=== PATIENT | female | born 1935 | race Caucasian/White ===

== ENCOUNTER 2017-05-24 10:47 | Inpatient (IN) | payer OTHER, MEDICARE ==
[2017-05-24 11:56] LABS: % IMMATURE GRANULYOCYTES 0.2 % (0.0-1.1); ABSOLUTE IMMATURE GRANULOCYTES 0.01 10^3/uL (0.00-0.10); ADD DIFF? NO; ADD MORPH? NO; ADD SCAN? NO; ATYPICAL LYMPHOCYTE FLAG 20 (0-99); FRAGMENT RBC FLAG 20 (0-99); HEMATOCRIT 35.7 % (38.0-47.0); LEFT SHIFT FLG 0 (0-99); LIPEMIA HEMOLYSIS FLAG 80 (0-99); MEAN CELL HEMOGLOBIN 28.6 pg (27.9-34.1); MEAN CELL HEMOGLOBIN CONCENTR. 30.8 g/dL (32.4-36.7); PLATELET CLUMPS FLAG 0 (0-99); PLATELET COUNT 287 10^3/uL (150-400); RED BLOOD CELL COUNT 3.84 10^6/uL (4.18-5.33); RED CELL DISTRIBUTION WIDTH 17.7 % (11.5-15.2)
[2017-05-24 12:13] LABS: ANION GAP 14 mEq/L (8-16); CALCIUM 9.1 mg/dL (8.5-10.4); CARBON DIOXIDE 22 mEq/l (22-31); CHLORIDE 108 mEq/L (97-110); CREATININE 0.7 mg/dL (0.6-1.0); GLOMERULAR FILTRATION RATE > 60; GLUCOSE 108 mg/dL (70-100); POTASSIUM 3.9 mEq/L (3.5-5.2); SODIUM 144 mEq/L (134-144)
[2017-05-24 12:15] LABS: SEDIMENTATION RATE 40 MM/HR (0-30)
[2017-05-24] MEDS ORDERED: VANCOMYCIN HCL/NORMAL SALINE 250 ML IV ONE (13:36)
--- NOTE | 2017-05-24 13:44 | EDPHY ---
H & P Stated Complaint: septic L knee staph infection many yrs ago Time Seen by Provider: 05/24/17 10:59 HPI/ROS: CHIEF COMPLAINT: left knee infection HISTORY OF PRESENT ILLNESS: 82-year-old female presents emergency department with her daughter who is concerned about an infection of her left knee. Patient had a staph infection of this left knee 17 years ago. She had her hardware removed, spacers placed and was on antibiotics. Patient was followed by infectious disease and was placed on daily suppressive doxycycline. Patient' s primary care doctor took her off of this 2 years ago. Daughter reports intermittently over the last year she has had redness that comes and goes in this knee, 1 week ago she started developing increasing redness, in the last 12 hours she has had increased redness with streaking, increased swelling and drainage. No fevers or chills, no fatigue, normal appetite, mild increase in pain. Patient ambulates with a walker. REVIEW OF SYSTEMS: A comprehensive 10 point review of systems is otherwise negative aside from elements mentioned in the history of present illness. Source: Patient, Family Exam Limitations: Other (Alzheimer's) - Personal History Current Tetanus/Diphtheria Vaccine: Unsure Current Tetanus Diphtheria and Acellular Pertussis (TDAP): Unsure - Medical/Surgical History Hx Asthma: No Hx Chronic Respiratory Disease: No Hx Diabetes: No Hx Cardiac Disease: Yes Hx Renal Disease: No Hx Cirrhosis: No Hx Alcoholism: No Hx HIV/AIDS: No Hx Splenectomy or Spleen Trauma: No Other PMH: Alzheimer, Pacer, CHF, CAD, Shogren's, Osteoarthritis, Heart Murmur, cardiomyopathy, hypertension, bilateral knee replacement, ankle replacement - Social History Smoking Status: Never smoked Alcohol Use: None Drug Use: None - Physical Exam Exam: Physical Exam Gen: Alert and Oriented, NAD HEENT: PERRL, moist mucous membranes NECK: no meningismus CV: regular rate and regular rhythm, systolic murmur PULM: CTAB, no wheezes ABDOMEN: Obese, soft, non tender to palpation, BS present BACK: No CVA tenderness NEURO: Neurologically grossly intact EXTREMITIES: Left knee with swelling, erythema, 1 cm x 1 cm abscess to lateral knee with fluctuance. Full extension, flexion to 80 degrees, warm to the touch , 2+ pedal pulses, sensation intact to light touch SKIN: See above PSYCH: answers questions appropriately. Constitutional: Initial Vital Signs Temperature (C) 36.6 C 05/24/17 10:49 Heart Rate 86 05/24/17 10:49 Respiratory Rate 16 05/24/17 10:49 Blood Pressure 152/92 H 05/24/17 10:49 O2 Sat (%) 94 05/24/17 10:49 O2 Delivery Mode Room Air Allergies/Adverse Reactions: Penicillins Allergy (Mild, Verified 04/30/12 22:03) Hives morphine Allergy (Verified 05/24/17 10:52) Home Medications: Medication Instructions Recorded Aspirin [Aspirin 81mg (*)] 81 mg PO DAILY 04/20/15 Calcium Carbonate [Oyster Shell 500 mg PO DAILY 04/20/15 Calcium 500 mg (*)] Cholecalciferol Vit D3 [Vitamin D3 1,000 units PO DAILY 04/20/15 (*)] DULoxetine [Cymbalta 30 MG (*)] 90 mg PO DAILY 04/20/15 Donepezil HCl [Aricept] 10 mg PO HS 04/20/15 Doxycycline Hyclate [Vibramycin 100 mg PO DAILY 04/20/15 100 MG (*)] Ferrous Sulfate [Ferrous Sulf 325 325 mg PO DAILY 04/20/15 MG (*)] Furosemide [Lasix 20 MG (*)] 20 mg PO DAILY 04/20/15 Herbals/Supplements -Info Only 1 ea PO DAILY 04/20/15 Magnesium Oxide [Magnesium Oxide 500 mg PO DAILY@18 04/20/15 500 mg] Pantoprazole Sodium [Protonix 40mg 40 mg PO DAILY 04/20/15 (*)] Potassium Chloride [Klor-Con 8] 8 meq PO DAILY 04/20/15 Simvastatin [Zocor] 20 mg PO 1800 04/20/15 Acetaminophen [Tylenol] 500 mg PO Q6 PRN 11/24/15 Benzocaine [Orajel] 1 gregory MM DAILY PRN 11/24/15 Docusate Sodium [Colace] 100 mg PO TID 11/24/15 Nystatin Powder [Mycostatin Powder 1 gregory TP BID 11/24/15 (RX)] Polyethylene Glycol 3350 [Miralax] 17 gm PO DAILY PRN 11/24/15 Sennosides [Senna] 8.6 mg PO BID 11/24/15 oxyCODONE IR [Oxycodone Ir (RX)] 10 mg PO TID 11/24/15 Medical Decision Making - Diagnostics Imaging: I viewed and interpreted images myself ED Course/Re-evaluation: IV established, CBC, chemistry panel, CRP, sed rate, blood cultures obtained. Left knee x-ray obtained. Lateral left knee abscess was drained, culture sent to the lab. Arthrocentesis attempted though unsuccessful. Patient is afebrile , nontoxic-appearing. Normal white blood cell count, CRP is elevated at 33, sed rate elevated at 40. Daughter reports doctor Nelson is the patient's orthopedist, we have left a message for him and paged Dr. Gregg who is on-call for their office. 130pm-I spoke with Dr. Damon, plan is to admit the patient to the hospitalist, I discussed with him that I was unable to obtain joint fluid though sent the lateral knee abscess for a culture. Patient has been started on vancomycin and will be admitted to the hospitalist with Ortho consult. Differential Diagnosis: Diagnosis considered but not limited to cellulitis, septic joint, fracture. - Data Points Laboratory Results: Laboratory Results 05/24/17 11:51 05/24/17 11:51 05/24/17 05/24/17 11:51 11:51 WBC 4.22 10^3/uL 10^3/uL (3.80-9.50) RBC 3.84 10^6/uL L 10^6/uL (4.18-5.33) Hgb 11.0 g/dL L g/dL (12.6-16.3) Hct 35.7 % L % (38.0-47.0) MCV 93.0 fL fL (81.5-99.8) MCH 28.6 pg pg (27.9-34.1) MCHC 30.8 g/dL L g/dL (32.4-36.7) RDW 17.7 % H % (11.5-15.2) Plt Count 287 10^3/uL 10^3/uL (150-400) MPV 10.0 fL fL (8.7-11.7) Neut % (Auto) 65.4 % % (39.3-74.2) Lymph % (Auto) 19.2 % % (15.0-45.0) [place] % (Auto) 10.4 % % (4.5-13.0) Eos % (Auto) 4.3 % % (0.6-7.6) Baso % (Auto) 0.5 % % (0.3-1.7) Nucleat RBC Rel Count 0.0 % % (0.0-0.2) Absolute Neuts (auto) 2.76 10^3/uL 10^3/uL (1.70-6.50) Absolute Lymphs (auto) 0.81 10^3/uL L 10^3/uL (1.00-3.00) Absolute Monos (auto) 0.44 10^3/uL 10^3/uL (0.30-0.80) Absolute Eos (auto) 0.18 10^3/uL 10^3/uL (0.03-0.40) Absolute Basos (auto) 0.02 10^3/uL 10^3/uL (0.02-0.10) Absolute Nucleated RBC 0.00 10^3/uL 10^3/uL (0-0.01) Immature Gran % 0.2 % % (0.0-1.1) Immature Gran # 0.01 10^3/uL 10^3/uL (0.00-0.10) ESR 40 MM/HR H MM/HR (0-30) Sodium 144 mEq/L mEq/L (134-144) Potassium 3.9 mEq/L mEq/L (3.5-5.2) Chloride 108 mEq/L mEq/L (97-110) Carbon Dioxide 22 mEq/l mEq/l (22-31) Anion Gap 14 mEq/L mEq/L (8-16) BUN 18 mg/dL mg/dL (7-23) Creatinine 0.7 mg/dL mg/dL (0.6-1.0) Estimated GFR > 60 Glucose 108 mg/dL H mg/dL (70-100) Calcium 9.1 mg/dL mg/dL (8.5-10.4) C-Reactive Protein 33.0 mg/L H mg/L (<10.0) Departure - Departure Disposition: [facility] Inpatient Acute Clinical Impression: Infection of left knee Condition: Good Referrals: Dion Elmore MD [Primary Care Provider] - As per Instructions
[2017-05-24] MEDS ORDERED: ONDANSETRON DISINTEGRATING 4 MG TAB PO PRN (15:14)
[2017-05-24] MEDS ORDERED: ACETAMINOPHEN 325 MG TAB PO PRN (15:14)
[2017-05-24] MEDS ORDERED: ONDANSETRON 4 MG/2 ML VIAL IVP PRN (15:14)
[2017-05-24] MEDS ORDERED: POLYETHYLENE GLYCOL 3350 17 GM PKT PO PRN (15:18)
[2017-05-24] MEDS ORDERED: BENZOCAINE (ORAJEL) GEL 11.9GM TUBE MM PRN (15:18)
[2017-05-24] MEDS ORDERED: NYSTATIN POWDER 15 GM BTL TP PRN (15:18)
--- NOTE | 2017-05-24 15:54 | GHP ---
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 She presents today with increased swelling of her left knee. It sounds like in the 2 years since her suppressive doxycycline has been stopped, isabel key has an intermittent swelling and warmth. She has seen multiple doctors. She has had attempted ar throcenteses that have been unsuccessful. She really has had on-and-off swelling and erythema. She has had no recent fever and chills. On the lateral aspect of her knee, she had what sounds like a pustule spontaneously drain about what sounds like a tablespoon of pus last week. There has been some warmth of the knee which is on waxing and waning but not new. There has been no acute loss of range of motion of her knee, and she is able to flex at about 90 degrees for me now without pain. In the emergency department, an attempted arthrocentesis, as I am told, yielded no fluid, but they w ere able to drain some fluid off a pustule on the lateral edge of the knee, which had purulent mater ial in a bandage. When I examined it, there was still some residual purulence in the pustule. Nota uche, this pustule is 8 in the lateral incision line. She denies pain in her groin, confusion, and fever/chills. REVIEW OF SYSTEMS: Complete 10-point review of systems conducted. Negative except as noted in the HPI. PAST MEDICAL HISTORY: Dementia, nonischemic cardiopathy (but last EF of 78%), history of pacemaker, history of complete heart block, history of Sjogren syndrome. She has had bilateral total hip repl acement and complicated knee replacement, as I have talked about. She had a right knee replacement, as well. Repair of left femoral fracture and left wrist surgery. She lives with her daughter and the family caregiver. No alcohol or tobacco. FAMILY HISTORY: Both parents had heart disease. ALLERGIES: Penicillins and morphine. HOME MEDICATIONS: Alendronate, aspirin, acetaminophen, benzocaine, cetirizine, vitamin D3, docusate , Donepezil, duloxetine, furosemide, irbesartan, mag oxide, methotrexate, nifedipine, nystatin, pant oprazole, polyethylene glycol, potassium chloride, senna, and simvastatin. PHYSICAL EXAMINATION: VITAL SIGNS: Temp 36.7, blood pressure 104/64, pulse 72, breathing 16 times a minute, 98% on room air. GENERAL: No acute distress. HEENT: Sclerae anicteric. Oropharynx humphrey ar. Mucous membranes moist. NECK: Supple without lymphadenopathy or JVD. LUNGS: Clear to auscul tation bilaterally. HEART: S1, S2 without murmurs. ABDOMEN: Soft, nontender, nondistended. EXTR EMITIES: Left lower extremity shows a visibly deformed knee secondary to her knee surgery 15 years ago. There is slight warmth and erythema. There is no lymphangitic streaking. There is no inguina l lymphadenopathy. There is a pustule on the lateral edge that has drained a bit of pus as I descri bed in the HPI. There is a little bit of inferior edema. The right leg shows evidence of prior kne e arthroplasty but is otherwise unremarkable. LABORATORY DATA: White count 4.2, hematocrit 36, platelets 287,000; MCV is normal. There is no INR . Sodium 141, potassium 3.9, chloride 108, bicarb 22, BUN 18, creatinine 0.7, glucose 108. CRP sli ghtly elevated at 33, and her sedimentation rate is elevated at 40. There is a knee film interprete d by me, which shows evidence of prior knee arthroplasty with probable joint effusion. I have discu ssed the case with Linda Qureshi NP, of the emergency department. ASSESSMENT/PLAN: An 82-year-old female with complex knee history, presents with concern for septic arthritis. 1. Septic arthritis: I think she has a likely soft tissue infection around her knee. Whether or n ot she has an indolent knee infection in her hardware is less clear. She does not have a hallmarks of decreased range of motion, fever, or leukocytosis; however, that there is a complexity to this st ory. It sounds like they were really unable to get fluid to send for sample. Orthopedics will see her. I have started her on vancomycin. 2. Code status: [id number]. 3. Dementia: Continue her donepezil. 4. Hypertension: Continue her nifedipine and irbesartan. 5. Prophylaxis: Pharmacologic prophylaxis indicated. For now, I will just give her SCDs in case t here is a plan for a washout or other invasive procedures. DISPOSITION: Inpatient status. /[id number]/MODL
[2017-05-24] MEDS ORDERED: SENNOSIDES 1 TAB PO PRN (16:00)
[2017-05-24] MEDS: ACETAMINOPHEN 500 MG TAB PO SCH ×2 (17:59→21:41)
[2017-05-24] MEDS: ATORVASTATIN CALCIUM 10 MG TAB PO SCH (17:59)
[2017-05-24] MEDS: DOCUSATE SODIUM 100 MG CAP PO SCH (20:20)
[2017-05-24] MEDS: FUROSEMIDE 20 MG TAB PO SCH (20:20)
[2017-05-24] MEDS: DONEPEZIL HCL 5 MG TAB PO SCH (20:20)
[2017-05-24] MEDS: MAGNESIUM OXIDE 400 MG TAB PO SCH (20:20)
[2017-05-24] MEDS: POTASSIUM CHLORIDE 8 MEQ PO SCH (20:21)
[2017-05-25] MEDS ORDERED: VANCOMYCIN HCL/NORMAL SALINE 250 ML IV SCH (02:30)
[2017-05-25 05:08] LABS: % IMMATURE GRANULYOCYTES 0.3 % (0.0-1.1); ABSOLUTE IMMATURE GRANULOCYTES 0.01 10^3/uL (0.00-0.10); ADD DIFF? NO; ADD MORPH? NO; ADD SCAN? NO; ATYPICAL LYMPHOCYTE FLAG 0 (0-99); FRAGMENT RBC FLAG 20 (0-99); HEMATOCRIT 33.5 % (38.0-47.0); HEMOGLOBIN 10.5 g/dL (12.6-16.3); LEFT SHIFT FLG 0 (0-99); LIPEMIA HEMOLYSIS FLAG 80 (0-99); MEAN CELL HEMOGLOBIN 28.8 pg (27.9-34.1); MEAN CELL HEMOGLOBIN CONCENTR. 31.3 g/dL (32.4-36.7); MEAN CELL VOLUME 91.8 fL (81.5-99.8); MEAN PLATELET VOLUME 10.1 fL (8.7-11.7); PLATELET CLUMPS FLAG 0 (0-99); PLATELET COUNT 274 10^3/uL (150-400); RED BLOOD CELL COUNT 3.65 10^6/uL (4.18-5.33); RED CELL DISTRIBUTION WIDTH 17.7 % (11.5-15.2)
[2017-05-25] MEDS ORDERED: Herbals/Supplements -Info Only PO SCH (09:00)
[2017-05-25] MEDS: DULoxetine 30 MG CAP PO SCH (09:40)
[2017-05-25] MEDS: NIFEdipine ER 30 MG TAB PO SCH (09:41)
[2017-05-25] MEDS: MAGNESIUM OXIDE 400 MG TAB PO SCH ×2 (09:43→20:24)
[2017-05-25] MEDS: ACETAMINOPHEN 500 MG TAB PO SCH ×3 (09:43→22:10)
[2017-05-25] MEDS: IRBESARTAN 75 MG TAB PO SCH (09:43)
[2017-05-25] MEDS: PANTOPRAZOLE SODIUM 40 MG TAB PO SCH (09:43)
[2017-05-25] MEDS: CETIRIZINE 10 MG TAB PO SCH (09:43)
[2017-05-25] MEDS: FUROSEMIDE 20 MG TAB PO SCH (09:43)
[2017-05-25] MEDS: DOCUSATE SODIUM 100 MG CAP PO SCH ×2 (09:43→20:24)
[2017-05-25] MEDS: CHOLECALCIFEROL VIT D3 2,000 UNITS TAB/CAP PO SCH (09:43)
--- NOTE | 2017-05-25 12:41 | GCON ---
[f rep st] CONSULTATION DATE OF CONSULTATION: 05/24/2017 CURRENT COMPLAINTS: Left knee pain and warmth. HISTORY OF PRESENT ILLNESS: This is an 82-year-old female with a complicated history with her left knee. She has had multiple surgeries and revision knee replacement done to it. She cannot remember when her last revision was or who did the actual surgery itself. She does note that she had an inf ection, but she is unsure what the actual bacteria was. Report from the emergency room had incorrec tly stated that Dr. Jesus Damon had done her surgery and suggested that she had a staph infection kye ated with doxycycline and was on chronic suppression; however, that had been stopped approximately 2 years ago, according to the report. She apparently has developed a small draining wound at the lat eral portion of her knee. She was seen in the emergency room, where that small bump was debrided. Apparently fluid was collected and sent to the lab for further evaluation. She was placed on vancom ycin in order to prevent any spread of any infection she may have. PHYSICAL EXAMINATION: The patient does have warmth and some redness to the skin of the knee. She h as no significant effusion noted to the actual knee joint itself. She has no pain to log roll throu gh the knee or to flexion or extension through the knee, with no pain noted at all. Most of her inci sions appear to have matured well except for one of the lateral ones were she has an approximately 1 .5 cm wound that appears to have been sharply debrided. The wound was thoroughly examined and no pu rulent fluid was able to be expressed from the wound. No serous fluid or joint fluid was able to be expressed from the wound. It was, therefore, redressed. LABORATORY RESULTS: Reveal that she has a white count of 4.22, which is normal. Her sedimentation rate, however, is elevated at 40 and her C-reactive protein is elevated at 33. She has remained afe brile while she is here in the hospital. Gram stain shows no organisms and cultures are pending. ASSESSMENT AND PLAN: Patient is status post left knee cellulitis versus septic joint. Long discuss ion was had with the patient regarding further treatment. I have suggested we continue with antibio tics, wait to see if her labs start to correct with the simple antibiotics she is currently on and s ee if the cellulitis or a knee infection starts to declare itself. I am unsure how much she underst ood the conversation, but she would prefer to be as conservative as possible. Her daughter, who gregory ears to have medical power of civil litigation attorney, was called. I was unable to well drill operator her and, therefore, lef t a message giving her a recount of the plan for treatment. I will continue to follow her while she is here in the hospital. /[id number]/MODL
[2017-05-25] MEDS ORDERED: NS 1,000 ML IV SCH (14:00)
--- NOTE | 2017-05-25 14:05 | HOSPPROG ---
Hospitalist Progress Note Assessment/Plan: 82 yo F w alzheimer's, remotely infected TKA s/p explant/spacer/implant here w erythematous knee ?septic arthritis: unclear. no fluid on attempted aspiration in ER inflammatory markers mildly elevated seen by ortho, expectant management pustule: on abx resolved systolic murmur: sounds like maintain euvolemia proph: lmwh sidpo: inpt Subjective: afebrile Objective: Vital Signs Temp Pulse Resp BP Pulse Ox 36.4 C 74 16 134/75 H 90 L 05/25/17 11:46 05/25/17 11:46 05/25/17 11:46 05/25/17 11:46 05/25/17 11:46 Laboratory Results 05/25/17 04:15 05/24/17 05/25/17 05/26/17 05:59 05:59 05:59 Intake Total 850 Balance 850 - Physical Exam Constitutional: no apparent distress, appears nourished Eyes: PERRL, anicteric sclera Ears, Nose, Mouth, Throat: moist mucous membranes, hearing normal Cardiovascular: regular rate and rhythym, no murmur, rub, or gallop, systolic murmur Respiratory: no respiratory distress, no rales or rhonchi Gastrointestinal: normoactive bowel sounds, soft, non-tender abdomen Genitourinary: no bladder fullness, No lilly in urethra Skin: warm, normal color Musculoskeletal: full muscle strength, other (knee less warm, less erythema) Neurologic: AAOx3, sensation intact bilaterally ICD10 Worksheet Patient Problems: Problems Problem Status Onset Infection of left knee Acute S/P closed reduction of dislocated total hip prothesis Acute
--- NOTE | 2017-05-25 14:35 | SOAPPROG ---
SOAP Progress Note Assessment/Plan: Assessment: Plan: Subjective: states she's comfortable neg pain with PROM and min warmth no drainage of wound at this time lower WBC cont Abx would continue chronic antibiotic suppression Call back if condition deteriorates Objective: Vital Signs Temp Pulse Resp BP Pulse Ox 36.4 C 74 16 134/75 H 90 L 05/25/17 11:46 05/25/17 11:46 05/25/17 11:46 05/25/17 11:46 05/25/17 11:46 Laboratory Results 05/25/17 04:15 05/24/17 05/25/17 05/26/17 05:59 05:59 05:59 Intake Total 850 Balance 850 ICD10 Worksheet Patient Problems: Problems Problem Status Onset Infection of left knee Acute S/P closed reduction of dislocated total hip prothesis Acute
[2017-05-25] MEDS: ATORVASTATIN CALCIUM 10 MG TAB PO SCH (17:04)
[2017-05-25] MEDS: DONEPEZIL HCL 5 MG TAB PO SCH (20:24)
[2017-05-25] MEDS: POTASSIUM CHLORIDE 8 MEQ PO SCH (20:25)
[2017-05-26] MEDS: VANCOMYCIN HCL/NORMAL SALINE 250 ML IV SCH (02:55)
[2017-05-26] MEDS: ACETAMINOPHEN 500 MG TAB PO SCH ×3 (09:25→20:05)
[2017-05-26] MEDS: DULoxetine 30 MG CAP PO SCH (09:25)
[2017-05-26] MEDS: CETIRIZINE 10 MG TAB PO SCH (09:25)
[2017-05-26] MEDS: MAGNESIUM OXIDE 400 MG TAB PO SCH ×2 (09:26→20:03)
[2017-05-26] MEDS: PANTOPRAZOLE SODIUM 40 MG TAB PO SCH (09:27)
[2017-05-26] MEDS: DOCUSATE SODIUM 100 MG CAP PO SCH ×2 (09:27→20:03)
[2017-05-26] MEDS: NIFEdipine ER 30 MG TAB PO SCH (09:27)
[2017-05-26] MEDS: CHOLECALCIFEROL VIT D3 2,000 UNITS TAB/CAP PO SCH (09:27)
[2017-05-26] MEDS: IRBESARTAN 75 MG TAB PO SCH (09:28)
[2017-05-26] MEDS ORDERED: METHOTREXATE 2.5 MG TAB PO SCH (12:00)
--- NOTE | 2017-05-26 13:58 | HOSPPROG ---
Hospitalist Progress Note Assessment/Plan: 82 yo F w alzheimer's, remotely infected TKA s/p explant/spacer/implant here w erythematous knee ?septic arthritis: probably not inflammatory markers mildly elevated seen by ortho, expectant management will complete 5 day course vanc, resume prophylactic doxycyline on dc pustule: on abx resolved systolic murmur: sounds like maintain euvolemia proph: lmwh sidpo: inpt Subjective: knee warm, but no fluctuance or effusion. ROM good. L lateral pustule and skin warmth improved Objective: Vital Signs Temp Pulse Resp BP Pulse Ox 36.9 C 82 16 120/74 94 05/26/17 11:26 05/26/17 11:26 05/26/17 11:26 05/26/17 11:26 05/26/17 11:26 Laboratory Results 05/25/17 04:15 05/25/17 05/26/17 05/27/17 05:59 05:59 05:59 Intake Total 850 550 Output Total 400 Balance 850 150 - Physical Exam Constitutional: no apparent distress, appears nourished Eyes: PERRL, anicteric sclera Ears, Nose, Mouth, Throat: moist mucous membranes, hearing normal Cardiovascular: regular rate and rhythym, no murmur, rub, or gallop Respiratory: no respiratory distress, no rales or rhonchi Gastrointestinal: normoactive bowel sounds, soft, non-tender abdomen Genitourinary: no bladder fullness, No lilly in urethra Skin: warm, normal color Musculoskeletal: full muscle strength, other (knee improved) Neurologic: AAOx3 Psychiatric: interacting appropriately ICD10 Worksheet Patient Problems: Problems Problem Status Onset Infection of left knee Acute S/P closed reduction of dislocated total hip prothesis Acute
[2017-05-26] MEDS: ATORVASTATIN CALCIUM 10 MG TAB PO SCH (17:48)
[2017-05-26] MEDS: DONEPEZIL HCL 5 MG TAB PO SCH (20:01)
[2017-05-26] MEDS: POTASSIUM CHLORIDE 8 MEQ PO SCH (20:04)
[2017-05-27] MEDS: VANCOMYCIN HCL/NORMAL SALINE 250 ML IV SCH (01:01)
[2017-05-27] MEDS: CETIRIZINE 10 MG TAB PO SCH (10:09)
[2017-05-27] MEDS: MAGNESIUM OXIDE 400 MG TAB PO SCH ×2 (10:09→20:22)
[2017-05-27] MEDS: NIFEdipine ER 30 MG TAB PO SCH (10:09)
[2017-05-27] MEDS: IRBESARTAN 75 MG TAB PO SCH (10:09)
[2017-05-27] MEDS: DULoxetine 30 MG CAP PO SCH (10:09)
[2017-05-27] MEDS: DOCUSATE SODIUM 100 MG CAP PO SCH ×2 (10:09→20:20)
[2017-05-27] MEDS: CHOLECALCIFEROL VIT D3 2,000 UNITS TAB/CAP PO SCH (10:10)
[2017-05-27] MEDS: PANTOPRAZOLE SODIUM 40 MG TAB PO SCH (10:10)
[2017-05-27] MEDS: ACETAMINOPHEN 500 MG TAB PO SCH ×3 (10:13→20:21)
--- NOTE | 2017-05-27 12:28 | HOSPPROG ---
Hospitalist Progress Note Assessment/Plan: 82 yo F w alzheimer's, remotely infected TKA s/p explant/spacer/implant here w erythematous knee ?septic arthritis: probably not inflammatory markers mildly elevated seen by ortho, expectant management will complete 5 day course vanc (finishes 05/29) resume prophylactic doxycyline on dc pustule: on abx resolved systolic murmur: sounds like maintain euvolemia proph: lmwh sidpo: inpt Subjective: knee improving Objective: Vital Signs Temp Pulse Resp BP Pulse Ox 36.7 C 78 15 157/98 H 94 05/27/17 12:00 05/27/17 12:00 05/27/17 12:00 05/27/17 12:00 05/27/17 12:00 Laboratory Results 05/25/17 04:15 05/26/17 05/27/17 05/28/17 05:59 05:59 05:59 Intake Total 550 1050 100 Output Total 400 1000 100 Balance 150 50 0 - Physical Exam Constitutional: no apparent distress, appears nourished Eyes: PERRL, anicteric sclera Ears, Nose, Mouth, Throat: moist mucous membranes, hearing normal Cardiovascular: regular rate and rhythym, no murmur, rub, or gallop Respiratory: no respiratory distress, no rales or rhonchi Gastrointestinal: normoactive bowel sounds, soft, non-tender abdomen Genitourinary: no bladder fullness, No lilly in urethra Skin: warm, normal color Musculoskeletal: full muscle strength, other (Knee warm but not edematous. no loss of ROM) ICD10 Worksheet Patient Problems: Problems Problem Status Onset Infection of left knee Acute S/P closed reduction of dislocated total hip prothesis Acute
[2017-05-27] MEDS: ATORVASTATIN CALCIUM 10 MG TAB PO SCH (17:58)
[2017-05-27 19:24] VITALS: RESP 16
[2017-05-27] MEDS: DONEPEZIL HCL 5 MG TAB PO SCH (20:20)
[2017-05-27] MEDS: POTASSIUM CHLORIDE 8 MEQ PO SCH (20:23)
[2017-05-28] MEDS: VANCOMYCIN HCL/NORMAL SALINE 250 ML IV SCH (01:38)
[2017-05-28 08:35] VITALS: BP 129/85; PULSE 84; TEMP 98; O2SAT 97
[2017-05-28] MEDS: ACETAMINOPHEN 500 MG TAB PO SCH (08:50)
[2017-05-28] MEDS: DOCUSATE SODIUM 100 MG CAP PO SCH (08:51)
[2017-05-28] MEDS: CHOLECALCIFEROL VIT D3 2,000 UNITS TAB/CAP PO SCH (08:51)
[2017-05-28] MEDS: DULoxetine 30 MG CAP PO SCH (08:51)
[2017-05-28] MEDS: CETIRIZINE 10 MG TAB PO SCH (08:51)
[2017-05-28] MEDS: MAGNESIUM OXIDE 400 MG TAB PO SCH (08:52)
[2017-05-28] MEDS: NIFEdipine ER 30 MG TAB PO SCH (08:52)
[2017-05-28] MEDS: IRBESARTAN 75 MG TAB PO SCH (08:52)
[2017-05-28] MEDS: PANTOPRAZOLE SODIUM 40 MG TAB PO SCH (08:52)
[2017-05-28] MEDS ORDERED: ASPIRIN 81 MG CHEWABLE TAB PO SCH (09:00)
--- NOTE | 2017-05-28 13:19 | PDIAF ---
- Diagnosis Diagnosis: soft tissue infection L knee Code Status: Do Not Resuscitate - Medication Management Discharge Medications: Medications to Continue on Transfer Aspirin [Aspirin 81mg (*)] 81 mg PO DAILY 04/20/15 [Last Taken 05/24/17] Cholecalciferol Vit D3 [Vitamin D3 (*)] 2,000 units PO DAILY 04/20/15 [Last Taken 05/24/17] DULoxetine [Cymbalta 30 MG (*)] 90 mg PO DAILY 04/20/15 [Last Taken 05/24/17] Donepezil HCl [Aricept] 10 mg PO HS 04/20/15 [Last Taken 05/23/17] Furosemide [Lasix 20 MG (*)] 20 mg PO BID 04/20/15 [Last Taken 05/24/17] Herbals/Supplements -Info Only 1 ea PO DAILY 04/20/15 [Last Taken Unknown] Magnesium Oxide [Magnesium Oxide 500 mg] 500 mg PO BID 04/20/15 [Last Taken 21:00] Pantoprazole Sodium [Protonix 40mg (*)] 40 mg PO DAILY 04/20/15 [Last Taken ] Potassium Chloride [Klor-Con 8] 8 meq PO HS 04/20/15 [Last Taken 05/23/17] Simvastatin [Zocor] 20 mg PO DAILY18 04/20/15 [Last Taken 05/23/17] Benzocaine [Orajel (*)] 1 gregory MM DAILY PRN 11/24/15 [Last Taken Unknown] Nystatin Powder [Mycostatin Powder] 1 gregory TP DAILY PRN 11/24/15 [Last Taken ] Polyethylene Glycol 3350 [Miralax 17 gm (*)] 17 gm PO DAILY PRN 11/24/15 [Last Taken Unknown] Sennosides [Senna] 8.6 mg PO DAILY PRN 11/24/15 [Last Taken Unknown] Acetaminophen [Tylenol ES 500 mg (*)] 1,000 mg PO TID 05/24/17 [Last Taken 05/24] Alendronate Sodium [Fosamax 70 MG (*)] 70 mg PO WE@0700 05/24/17 [Last Taken ] Cetirizine [ZyrTEC 10 mg (*)] 10 mg PO DAILY 05/24/17 [Last Taken 05/24/17] Docusate Sodium [Colace 100 MG (*)] 100 mg PO BID 05/24/17 [Last Taken 05/24/17] Irbesartan [Avapro 75 mg (*)] 75 mg PO DAILY 05/24/17 [Last Taken 05/24/17] Methotrexate Sodium [Rheumatrex] 10 mg PO SA@12 05/24/17 [Last Taken 05/19/17] NIFEdipine ER [Adalat CC 30 mg (*)] 30 mg PO DAILY 05/24/17 [Last Taken 05/24/17 ] Doxycycline Hyclate 100 mg PO BID #60 tablet 05/28/17 [Last Taken Unknown] Discharge Medications: Refer to the Discharge Home Medication list for PRN reason. - Orders Services needed: Home Care, Registered Nurse Home Care Face to Face: I certify that this patient was under my care and that I had the required [id number] encounter meeting the encounter requirements on the discharge day. My findings support the fact that the patient is homebound as defined in CMS Chapter 7 Medicare Benefits Manual 30.1.1, The condition of the patient is such that there exists a normal inability to leave home and consequently, leaving home would require a considerable and taxing effort. Diet Recommendation: no restrictions on diet Diet Texture: Regular Texture Diet - Follow Up Care Current Providers and Referrals: Dion Elmore MD [Primary Care Provider] - As per Instructions
--- NOTE | 2017-05-28 13:24 | PDDCSUM ---
Discharge Summary Discharge Summary: DISCHARGE DIAGNOSES: -Presumed soft tissue infection in the area of left knee -cardiac murmur suggestive of aortic stenosis -Small rash on right leg possibly suggestive of drug rash of uncertain etiology CONSULTANTS: Dr. Stacy Gregg of Orthopedics PROCEDURES: Aspiration of fluid from a pustule adjacent to the left knee in the skin, culture negative Attempted arthrocentesis without any fluid yielded. HOSPITAL COURSE SUMMARY: This patient came in with some swelling warmth and redness of skin around her left knee. The knee itself was without increased pain or decreased range of motion from baseline. There is no abnormality on x-ray. There is a small pustule in the skin which revealed a small amount of fluid which was culture negative. She has been treated here with antibiotic including vancomycin for presumptive staph infection and has had improvement in her symptoms. There was no fever or elevation of white blood cell count and minimal elevation of sedimentation rate and CRP. This patient has a previous history of a knee prosthesis infection with subsequent removal of the prosthesis and spacer in place. She had previously been on suppressive antibiotic therapy for which she used doxycycline for number of years but this was stopped 2 years ago. It sounds like since that time she has had recurrent episodes on and off of swelling and redness in the region of the knee generally without much pain. At this point is like to put her back on suppressive antibiotic therapy. She was not felt to have any indication for any surgery. PENDING TEST RESULTS: Blood cultures are negative to date at day 4 but the final results still pending MEDICATION CHANGES: Addition of doxycycline 100 mg twice daily FOLLOW-UP PLAN: With Dr. Elmore in clinic next week She will have home care with RN Greater than 35 minutes bedside and care coordination time today
== END 2017-05-28 15:35 | disposition home health service (06) | DRG 603 ==
LOC: F3N 14:36
PROVIDERS: ADMIT Internal Medicine; ATTEND Internal Medicine
PROC: 0H9LXZX Drainage of Left Lower Leg Skin, External Approach, Diagnostic (ICD-10-PCS; principal; 2017-05-24)
PROC: 0S9D3ZX Drainage of Left Knee Joint, Percutaneous Approach, Diagnostic (ICD-10-PCS; principal; 2017-05-24)
DX: L03.116 Cellulitis of left lower limb (principal); Z96.653 Presence of artificial knee joint, bilateral; Z96.643 Presence of artificial hip joint, bilateral; I35.0 Nonrheumatic aortic (valve) stenosis; G30.9 Alzheimer's disease, unspecified; F02.80 Dementia in other diseases classified elsewhere, unspecified severity, without behavioral disturbance, psychotic disturbance, mood disturbance, and anxiety; Z95.0 Presence of cardiac pacemaker
CPT/HCPCS: 96365; 97116-GP; 97161-GP; 97530-GP; G8978-GP-CI; G8979-GP-CI; J3370